=== PATIENT | male | born 1995 | race Caucasian/White ===

== ENCOUNTER → 2017-08-23 | Outpatient (CLI) | payer BC ==
[~2017-08-23] MED LIST: PREDNISONE20 MG PO; PROAIR HFA0.09 MG/AC IH; VITAMIN C500 MG PO; ZITHROMAX Z PA250 MG PO; ZYRTEC 10MG10 MG PO
== END ==
LOC: COL.RAD 15:44
DX: S06.9X9A Unspecified intracranial injury with loss of consciousness of unspecified duration, initial encounter (principal)